=== PATIENT | female | born 2000 | race Caucasian/White ===

== ENCOUNTER 2021-10-07 01:05 | Emergency (ER) | payer OTHER ==
[2021-10-07] MEDS ORDERED: Fluorescein Opthalmic Strip ONE (01:54)
[2021-10-07] MEDS ORDERED: Proparacaine 0.5% Opth 15 ML BOT ONE (01:54)
== END 2021-10-07 02:16 | disposition home or self-care (01) ==
LOC: ERS 01:05
DX: H57.12 Ocular pain, left eye (principal)
CPT/HCPCS: 99283